=== PATIENT | female | born 1945 | race Caucasian/White ===

== ENCOUNTER 2021-11-19 12:56 | Outpatient (CLI) | payer BC, SELFPAY ==
--- NOTE | 2021-11-19 13:29 | XRR_ITS ---
PROCEDURE INFORMATION: Exam: XR Abdomen Exam date and time: 11/19/2021 1:29 PM Age: 76 years old Clinical indication: Constipation; Additional info: Constipation, chronic, abdominal pain TECHNIQUE: Imaging protocol: XR of the abdomen. Views: Frontal supine view of the abdomen. 1 View. COMPARISON: No relevant prior studies available. FINDINGS: Gastrointestinal tract: Normal. No bowel dilation. Bones/joints: Unremarkable. XR/XR abdomen 1V* [id number] IMPRESSION: No acute findings.
== END 2021-11-19 12:57 | disposition home or self-care (01) ==
PROVIDERS: Family Provider Family Medicine; PCP Electrodiagnostic Medicine; Visit Provider Electrodiagnostic Medicine
DX: K59.09 Other constipation (principal)
CPT/HCPCS: 74018